=== PATIENT | female | born 1955 | race Caucasian/White ===

== ENCOUNTER 2021-12-30 21:36 | Emergency (ER) | payer OTHER ==
[2021-12-30 21:41] VITALS: BP 134/73; PULSE 67; TEMP 97; BMI 24.2
[2021-12-30] MEDS ORDERED: DEXAMETHASONE SOD PHOSPHATE 10 MG/1 ML VIAL IM ONE (23:20)
[2021-12-30] MEDS ORDERED: diphenhydrAMINE HCL 50 MG CAPSULE PO ONE (23:20)
[2021-12-30] MEDS ORDERED: diphenhydrAMINE HCL 25 MG CAPSULE (FP) PO ONE (23:32)
[2021-12-30] MEDS ORDERED: DEXAMETHASONE SOD PHOSPHATE 10 MG/1 ML VIAL ONE (23:32)
== END 2021-12-31 00:37 | disposition home or self-care (01) ==
LOC: JERFT 21:36
PROC: 3E0233Z Introduction of Anti-inflammatory into Muscle, Percutaneous Approach (ICD-10-PCS; principal; 2021-12-30)
DX: R21 Rash and other nonspecific skin eruption (principal)
CPT/HCPCS: 99284-25; J1100